=== PATIENT | male | born 1985 | race Caucasian/White ===

== ENCOUNTER 2019-05-03 10:22 | Emergency (ER) | payer BC ==
[2019-05-03 10:31] VITALS: Wt 84.1 kg
[2019-05-03] MEDS ORDERED: CLEOCIN HCL300 MG PO (11:09)
[2019-05-03] MEDS ORDERED: IBUPROFEN800 MG PO (11:09)
[2019-05-03 11:24] VITALS: BP 140/90
== END 2019-05-03 11:24 | disposition home or self-care (01) ==
LOC: D.ER 10:22
DX: K04.7 Periapical abscess without sinus (principal); K13.79 Other lesions of oral mucosa; Z72.0 Tobacco use